=== PATIENT | male | born 1960 | race African-American/Black ===

== ENCOUNTER 2017-02-09 07:11 | Inpatient (IN) | payer BC ==
[~2017-02-09] VITALS: Ht 182.9 cm; Wt 121.7 kg
--- NOTE | ~2017-02-09 | EKG ---
[address] [place] [address] ELECTROCARDIOGRAM REPORT Name: FRANCO KNIGHT Room #: 313-[facility] IN M.R.#: [id number] Admission: 02/09/17 Attend Phys: Jurgen Knight MD Discharge: 02/10/17 Date of : 64 Report #: [id number] THIS REPORT FOR: //name// [facility] ED Test Date: 2017-02-09 Test Time: 07:30:50 Pat Name: FRANCO KNIGHT Department: Room: [facility] Gender: M Kitchen Stewardess: : 1960 Requested By: Jurgen Knight Order Number: [id number] MD: Cornell Agrawal Measurements Intervals [place] Rate: 72 P: 41 [place]: 152 QRS: 12 QRSD: 83 T: -2 QT: 352 QTc: 386 Interpretive Statements Sinus rhythm No significant abnormality No previous ECG available for comparison Electronically Signed On 02-12-2017 8:37:12 CDT by Cornell Agrawal [email or web address] <ELECTRONICALLY SIGNED> By: Cornell Agrawal MD, [facility] 02/12/17 0837 D: [id number] Cornell Agrawal MD, FAC /EPI
[2017-02-09 07:16] VITALS: BP 142/93
[2017-02-09 07:38] LABS: BASOPHILS 0.6 % (0.0-2.0); EOSINOPHILS 3.5 % (0.0-3.0); HEMATOCRIT 44.2 % (42.0-52.0); HEMOGLOBIN 14.7 gm/dL (14.0-18.0); LYMPHOCYTES 29.6 % (24.0-44.0); MCH 28.2 pg (26.0-34.0); MCHC 33.3 g/dL (28.0-37.0); MCV 84.5 fL (80.0-100.0); MONOCYTES 9.9 % (1.0-8.0); PLATELET COUNT 272 thou/uL (150-400); POLYS 56.4 % (36.0-66.0); RBC 5.23 mil/uL (4.50-6.00); RDW 13.6 % (10.5-14.5); WBC 7.1 thou/uL (4.0-11.0)
[2017-02-09 07:39] LABS: MANUAL DIFF NO
[2017-02-09 07:45] LABS: CREATININE 1.2 mg/dL (0.7-1.3); POTASSIUM 3.8 mmol/L (3.5-5.1)
[2017-02-09 08:26] LABS: URINE BILIRUBIN NEGATIVE (Negative); URINE BLOOD NEGATIVE (Negative); URINE COLOR YELLOW; URINE GLUCOSE-RANDOM* NEGATIVE (Negative); URINE KETONES NEGATIVE (Negative); URINE NITRITE NEGATIVE (Negative); URINE PROTEIN (DIPSTICK) NEGATIVE (Negative); URINE SPECIFIC GRAVITY <= 1.005 (1.003-1.035); URINE UROBILINOGEN 0.2 E.U./dl (0.2-1.0)
[2017-02-09 08:35] VITALS: BP 128/72
[2017-02-09 08:35] LABS: AMP/METHAMP Negative (Negative); BARBITURATES Negative (Negative); BENZODIAZEPINES Negative (Negative); COCAINE Negative (Negative); METHADONE Negative (Negative); OPIATES Negative (Negative); PCP Negative (Negative); THC Negative (Negative)
[2017-02-09 08:44] VITALS: BP 130/79
[2017-02-09 09:13] LABS: FOLIC ACID 17.2 ng/mL (8.6-58.9); TSH 2.559 uIU/mL (0.358-3.740)
[2017-02-09 09:30] VITALS: BP 127/76
[2017-02-09 11:58] LABS: CHOLESTEROL 175 mg/dL (<200); HDL CHOLESTEROL 50 mg/dL (>40); LDL CHOLESTEROL 106 mg/dL (<100); TC:HDL 3.5 Ratio (Not establshd); TRIGLYCERIDE 98 mg/dL (<150); VLDL 20 mg/dL (<40)
[2017-02-09 11:59] LABS: SERUM ASSESSMENT Clear
[2017-02-09 20:00] VITALS: BP 144/93
[2017-02-10] VITALS: BP 108/78
[2017-02-10 04:00] VITALS: BP 115/65
[2017-02-10 05:11] LABS: GLYCOHEMOGLOBIN (HGB A1C) 5.7 % (4.8-5.6)
[2017-02-10 08:00] VITALS: BP 141/92
[2017-02-10] MEDS ORDERED: ATORVASTATIN CA10 MG PO (12:36)
[2017-02-10 12:45] VITALS: BP 141/92
[2017-02-13 01:08] LABS: ALPHA TOCOPHEROL 11.1 mg/L (5.3-17.5)
== END 2017-02-10 13:30 | disposition home or self-care (01) | DRG 70 ==
LOC: ER 07:11 → 3N 08:24 → EROBS 08:24 → 3N 09:11
PROVIDERS: Emergency Medicine; Psychiatry & Neurology Neurology
DX: G45.4 Transient global amnesia (principal); G93.40 Encephalopathy, unspecified; E78.5 Hyperlipidemia, unspecified; Z79.899 Other long term (current) drug therapy
CPT/HCPCS: 10096